=== PATIENT | male | born 1975 | race Two or more races ===

== ENCOUNTER 2023-09-02 02:28 | Emergency (ER) | payer OTHER ==
[~2023-09-02] VITALS: Ht 175.3 cm; Wt 77.1 kg
[2023-09-02] MEDS ORDERED: CYCLOBENZAPRINE 10 MG TABLET ONE (03:08)
[2023-09-02] MEDS ORDERED: KETOROLAC TROMETHAMINE INJ 30 MG/ML VIAL ONE (03:08)
[2023-09-02] MEDS ORDERED: CYCLOBENZAPRINE 10 MG TABLET PO ONE (03:30)
[2023-09-02] MEDS ORDERED: KETOROLAC TROMETHAMINE INJ 30 MG/ML VIAL IM ONE (03:30)
[2023-09-02] MEDS ORDERED: CYCL5TAB PO (04:05)
[2023-09-02] MEDS ORDERED: KETO10TA2 PO (04:05)
[2023-09-02 04:16] VITALS: BP 128/83; TEMP 98.5; O2SAT 98
== END 2023-09-02 04:16 | disposition home or self-care (01) ==
LOC: ER 02:39
DX: M54.41 Lumbago with sciatica, right side (principal); F17.200 Nicotine dependence, unspecified, uncomplicated; Z79.899 Other long term (current) drug therapy
CPT/HCPCS: 99284; 96372; 93005; 73552; 73502; J1885